=== PATIENT | male | born 1985 | race Caucasian/White ===

== ENCOUNTER 2020-03-01 10:56 | Outpatient (CLI) | payer BC ==
--- NOTE | 2020-03-01 13:55 | RAD ---
THORACIC SPINE 3 VIEWS: DATE: 03/01/2020. COMPARISON: None. HISTORY: Mid back pain. FINDINGS: Thoracic pedicles appear intact on frontal imaging. Lateral imaging demonstrates normal vertebral nurys dy height and alignment. Cervicothoracic junction appears normal on the swimmer's lateral view. The re is disk space narrowing with mild anterior osteophyte formation at T10-11. IMPRESSION: No acute osseous abnormality. POS: [facility]
--- NOTE | 2020-03-01 14:12 | RAD ---
LATERAL RADIOGRAPH LUMBAR SPINE: 03/01/20 HISTORY: Pain. FINDINGS: Two lateral images are provided, one coned down to the lumbosacral junction and one overlying the lum bar spine. No anterolisthesis of retrolisthesis. No acute fracture is evident. No frontal imaging is provided. IMPRESSION: Unremarkable lateral imaging of the lumbar spine. POS: [facility]
== END 2020-03-01 10:57 | disposition home or self-care (01) ==
LOC: SCSRAD 10:56
PROVIDERS: ATTEND Internal Medicine
DX: M79.18 Myalgia, other site (principal)
CPT/HCPCS: 72072; 72100